=== PATIENT | male | born 1940 | race Caucasian/White ===

== ENCOUNTER → 2021-05-18 | Day surgery (SDC) | payer MEDICARE ==
[~2021-05-18] MED LIST: Albumin 25% 100 ML ONE; Sodium Bicarbonate 2.5 MEQ/5 ML VIAL ONE
[2021-05-18 13:38] VITALS: TEMP 98
== END ==
LOC: CSHULT 12:34
PROVIDERS: ATTEND Physician Assistant Medical
DX: R18.8 Other ascites (principal)
CPT/HCPCS: 49083; P9047

== ENCOUNTER 2021-06-01 12:42 | Day surgery (SDC) | payer MEDICARE ==
[2021-06-01] MEDS ORDERED: Lidocaine 1% PF 5 ML VIAL ONE (12:59)
[2021-06-01] MEDS ORDERED: Albumin 25% 100 ML ONE (12:59)
[2021-06-01] MEDS ORDERED: Sodium Bicarbonate 2.5 MEQ/5 ML VIAL ONE (13:00)
[2021-06-01 13:58] LABS: Anion Gap 12 mmol/L (10-20); BUN (Urea Nitrogen) 38 mg/dL (8.4-25.7); Calc. Creatinine Clearance 0 mL/min (70-130); Calcium 9.1 mg/dL (7.8-10.44); Carbon Dioxide 29 mmol/L (23-31); Chloride 101 mmol/L (98-107); Glucose 285 mg/dL (83-110); Magnesium 2.4 mg/dL (1.6-2.6); Potassium 4.5 mmol/L (3.5-5.1); Sodium 137 mmol/L (136-145)
[2021-06-01 14:45] VITALS: BMI 28.0
[2021-06-01 15:04] VITALS: BP 129/63; TEMP 98.2
[2021-06-01] MEDS ORDERED: FLU VACC QS2021-22(65YR UP)/PF 240 MCG/0.7 ML SYRINGE IM ONE (15:30)
== END 2021-06-01 14:25 | disposition home or self-care (01) ==
LOC: CSHULT 12:42
PROVIDERS: ATTEND Physician Assistant Medical
DX: R18.8 Other ascites (principal); K74.60 Unspecified cirrhosis of liver
CPT/HCPCS: 49083; 80048; 83735; 83880; P9047

== ENCOUNTER 2021-06-13 12:40 | Day surgery (SDC) | payer MEDICARE ==
[2021-06-13] MEDS ORDERED: Albumin 25% 100 ML ONE (13:06)
[2021-06-13] MEDS ORDERED: Lidocaine 1% PF 5 ML VIAL ONE (13:06)
[2021-06-13] MEDS ORDERED: Sodium Bicarbonate 2.5 MEQ/5 ML VIAL ONE (13:07)
== END 2021-06-13 14:18 | disposition home or self-care (01) ==
LOC: CSHULT 12:40
PROVIDERS: ATTEND Physician Assistant Medical
DX: R18.8 Other ascites (principal); K74.60 Unspecified cirrhosis of liver
CPT/HCPCS: 49083; P9047

== ENCOUNTER 2021-06-27 12:40 | Day surgery (SDC) | payer MEDICARE ==
[2021-06-27] MEDS ORDERED: Albumin 25% 100 ML ONE (13:01)
[2021-06-27] MEDS ORDERED: Lidocaine 1% PF 5 ML VIAL ONE (13:01)
[2021-06-27 13:46] VITALS: TEMP 97.8
[2021-06-27 14:37] LABS: #Basophils 0.1 10x3/uL (0.0-0.2); #Eosinphils 0.4 10x3/uL (0.0-0.5); #Monocytes 0.6 10x3/uL (0.0-1.1); %Basophils 1.1 % (0.0-2.0); %Eosinophils 6.3 % (0.0-6.0); %Lymphocytes 12.9 % (18.0-47.0); %Monocytes 10.4 % (0.0-10.0); Hemoglobin 9.2 g/dL (13.5-17.5); Mean Corpuscular HGB CONC 32.5 g/dL (32.0-36.0); Mean Corpuscular Hemoglobin 33.6 pg (27.0-33.0); Mean Corpuscular Volume 103.3 fl (81.2-95.1); Mean Platelet Volume 10.7 fl (7.4-10.4); Platelet Count 203 10x3/uL (150-450); RBC Distribution Width 13.7 % (11.5-14.5); Red Blood Cell (RBC) Count 2.74 10x6/uL (4.32-5.72); White Blood Cell (WBC) Count 5.6 10x3/uL (3.5-10.5)
[2021-06-27 14:47] LABS: INR-International Normal Ratio 1.2; PTT 26.7 sec (22.0-33.0); Prothrombin Time 12.9 sec (9.5-12.1)
[2021-06-27 15:05] VITALS: BP 117/58
== END 2021-06-27 14:46 | disposition home or self-care (01) ==
LOC: CSHULT 12:40
PROVIDERS: ATTEND Physician Assistant Medical
DX: R18.8 Other ascites (principal); K74.60 Unspecified cirrhosis of liver; N18.4 Chronic kidney disease, stage 4 (severe)
CPT/HCPCS: 49083; 85025; 85610; 85730; P9047

== ENCOUNTER 2021-07-11 12:09 | Day surgery (SDC) | payer MEDICARE ==
[2021-07-11] MEDS ORDERED: FLU VACC QS2021-22(65YR UP)/PF 240 MCG/0.7 ML SYRINGE IM ONE (13:15)
[2021-07-11 14:02] LABS: Hemoglobin 9.9 g/dL (13.5-17.5); MDiff Complete? YES; Mean Corpuscular HGB CONC 32.4 g/dL (32.0-36.0); Mean Corpuscular Hemoglobin 33.4 pg (27.0-33.0); Mean Corpuscular Volume 103.4 fl (81.2-95.1); Mean Platelet Volume 10.8 fl (7.4-10.4); Platelet Count 205 10x3/uL (150-450); RBC Distribution Width 13.9 % (11.5-14.5); Red Blood Cell (RBC) Count 2.96 10x6/uL (4.32-5.72); White Blood Cell (WBC) Count 3.9 10x3/uL (3.5-10.5)
[2021-07-11 14:10] LABS: INR-International Normal Ratio 1.2; Prothrombin Time 13.5 sec (9.5-12.1)
[2021-07-11] MEDS ORDERED: Lidocaine 1% PF 5 ML VIAL ONE (14:46)
[2021-07-11 14:49] LABS: Band 4 % (5-11); Eosinophils 3 % (0-10); Lymphocytes 15 % (21-51); Monocytes 10 % (0-10); Neutrophil 68 % (42-75); Platelet Morphology Comment Appears Adequate
[2021-07-11] MEDS ORDERED: Albumin 25% 100 ML ONE (15:11)
== END 2021-07-11 15:42 | disposition home or self-care (01) ==
LOC: CSHULT 12:09
PROVIDERS: ATTEND Physician Assistant Medical
DX: R18.8 Other ascites (principal); K74.60 Unspecified cirrhosis of liver; D64.9 Anemia, unspecified; N18.9 Chronic kidney disease, unspecified
CPT/HCPCS: 49083; 76705; 85025; 85610; P9047

== ENCOUNTER 2021-07-25 12:14 | Day surgery (SDC) | payer MEDICARE ==
[2021-07-25] MEDS ORDERED: Albumin 25% 100 ML ONE ×2 (12:55→14:08)
[2021-07-25] MEDS ORDERED: Lidocaine 1% PF 5 ML VIAL ONE ×2 (12:56→13:42)
[2021-07-25] MEDS ORDERED: Sodium Bicarb 50 MEQ/50 ML VIAL ONE (12:56)
[2021-07-25] MEDS ORDERED: Sodium Bicarbonate 2.5 MEQ/5 ML VIAL ONE (12:58)
[2021-07-25 14:20] VITALS: BP 126/63; TEMP 97.8
== END 2021-07-25 14:40 | disposition home or self-care (01) ==
LOC: CSHULT 12:14
PROVIDERS: ATTEND Physician Assistant Medical
DX: R18.8 Other ascites (principal); K74.60 Unspecified cirrhosis of liver
CPT/HCPCS: 49083; P9047

== ENCOUNTER 2021-08-08 12:01 | Day surgery (SDC) | payer MEDICARE ==
[2021-08-08] MEDS ORDERED: Sodium Bicarbonate 2.5 MEQ/5 ML VIAL ONE (13:00)
[2021-08-08] MEDS ORDERED: Lidocaine 1% PF 5 ML VIAL ONE (13:00)
[2021-08-08] MEDS ORDERED: Albumin 25% 100 ML ONE ×2 (13:00→13:09)
[2021-08-08 14:24] VITALS: BP 137/67; TEMP 97.8
[2021-08-08] MEDS ORDERED: FLU VACC QS2021-22(65YR UP)/PF 240 MCG/0.7 ML SYRINGE IM ONE (14:30)
[2021-08-08 14:58] LABS: #Basophils 0.1 10x3/uL (0.0-0.2); #Eosinphils 0.4 10x3/uL (0.0-0.5); #Monocytes 0.6 10x3/uL (0.0-1.1); #Neutrophils 3.7 10x3/uL (1.5-8.4); %Lymphocytes 17.8 % (18.0-47.0); %Monocytes 10.6 % (0.0-10.0); %Neutrophils 63.1 % (40.0-75.0); Hemoglobin 9.7 g/dL (13.5-17.5); Mean Corpuscular HGB CONC 31.9 g/dL (32.0-36.0); Mean Corpuscular Hemoglobin 32.3 pg (27.0-33.0); Mean Corpuscular Volume 101.3 fl (81.2-95.1); Platelet Count 201 10x3/uL (150-450); RBC Distribution Width 14.5 % (11.5-14.5); White Blood Cell (WBC) Count 5.8 10x3/uL (3.5-10.5)
[2021-08-08 15:07] LABS: INR-International Normal Ratio 1.1; Prothrombin Time 11.8 sec (9.5-12.1)
== END 2021-08-08 14:16 | disposition home or self-care (01) ==
LOC: CSHULT 12:01
PROVIDERS: ATTEND Physician Assistant Medical
DX: R18.8 Other ascites (principal); K74.60 Unspecified cirrhosis of liver; N18.9 Chronic kidney disease, unspecified; I50.9 Heart failure, unspecified; Z79.899 Other long term (current) drug therapy; Z79.82 Long term (current) use of aspirin; Z79.01 Long term (current) use of anticoagulants
CPT/HCPCS: 49083; 85025; 85610; P9047

== ENCOUNTER 2021-08-22 12:12 | Day surgery (SDC) | payer MEDICARE ==
[2021-08-22] MEDS ORDERED: Albumin 25% 100 ML ONE ×2 (12:49→13:11)
[2021-08-22] MEDS ORDERED: Lidocaine 1% PF 5 ML VIAL ONE (12:50)
[2021-08-22] MEDS ORDERED: Sodium Bicarbonate 2.5 MEQ/5 ML VIAL ONE (12:51)
[2021-08-22 13:01] VITALS: BP 106/68; TEMP 98.7
== END 2021-08-22 14:06 | disposition home or self-care (01) ==
LOC: CSHRAD 12:12
PROVIDERS: ATTEND Physician Assistant Medical
DX: R18.8 Other ascites (principal)
CPT/HCPCS: 49083; P9047

== ENCOUNTER 2021-09-05 12:16 | Day surgery (SDC) | payer MEDICARE ==
[2021-09-05] MEDS ORDERED: Albumin 25% 100 ML ONE ×2 (12:25→13:41)
[2021-09-05] MEDS ORDERED: Lidocaine 1% PF 5 ML VIAL ONE (12:26)
[2021-09-05] MEDS ORDERED: Sodium Bicarbonate 2.5 MEQ/5 ML VIAL ONE (12:26)
[2021-09-05 13:16] LABS: #Basophils 0.1 10x3/uL (0.0-0.2); #Eosinphils 0.4 10x3/uL (0.0-0.5); #Monocytes 0.6 10x3/uL (0.0-1.1); #Neutrophils 3.4 10x3/uL (1.5-8.4); %Basophils 1.3 % (0.0-2.0); %Eosinophils 7.9 % (0.0-6.0); %Lymphocytes 16.2 % (18.0-47.0); %Monocytes 10.9 % (0.0-10.0); %Neutrophils 63.5 % (40.0-75.0); Hemoglobin 9.6 g/dL (13.5-17.5); Mean Corpuscular Hemoglobin 32.5 pg (27.0-33.0); Mean Corpuscular Volume 101.7 fl (81.2-95.1); Mean Platelet Volume 10.5 fl (7.4-10.4); Platelet Count 236 10x3/uL (150-450); RBC Distribution Width 15.5 % (11.5-14.5); Red Blood Cell (RBC) Count 2.95 10x6/uL (4.32-5.72); White Blood Cell (WBC) Count 5.4 10x3/uL (3.5-10.5)
[2021-09-05 13:33] LABS: INR-International Normal Ratio 1.1; PTT 25.5 sec (22.0-33.0); Prothrombin Time 12.5 sec (9.5-12.1)
[2021-09-05 14:47] VITALS: BP 136/71; TEMP 98.7
== END 2021-09-05 14:30 | disposition home or self-care (01) ==
LOC: CSHULT 12:16
PROVIDERS: ATTEND Physician Assistant Medical
DX: R18.8 Other ascites (principal)
CPT/HCPCS: 49083; 85025; 85610; 85730; P9047

== ENCOUNTER → 2021-09-12 | Day surgery (SDC) | payer MEDICARE ==
[~2021-09-12] MED LIST changes: -Albumin 25% 100 ML ONE; +Albumin 25% 200 ML ONE; +FLU VACC QS2021-22(65YR UP)/PF 240 MCG/0.7 ML SYRINGE IM ONE; +Lidocaine 1% PF 5 ML VIAL ONE
[2021-09-12 13:16] VITALS: BP 115/53; TEMP 97.4
== END ==
LOC: CSHULT 09:59
PROVIDERS: ATTEND Physician Assistant Medical
DX: R18.8 Other ascites (principal); E11.9 Type 2 diabetes mellitus without complications; E78.00 Pure hypercholesterolemia, unspecified; Z79.899 Other long term (current) drug therapy; Z79.01 Long term (current) use of anticoagulants; Z95.0 Presence of cardiac pacemaker; I11.0 Hypertensive heart disease with heart failure; I50.9 Heart failure, unspecified; Z79.84 Long term (current) use of oral hypoglycemic drugs
CPT/HCPCS: 49083; P9047

== ENCOUNTER 2021-09-19 11:59 | Day surgery (SDC) | payer MEDICARE ==
[2021-09-19] MEDS ORDERED: Albumin 25% 200 ML ONE (12:25)
[2021-09-19] MEDS ORDERED: Sodium Bicarbonate 2.5 MEQ/5 ML VIAL ONE (12:26)
[2021-09-19 13:14] VITALS: BP 118/65; TEMP 97.8
[2021-09-19] MEDS ORDERED: FLU VACC QS2021-22(65YR UP)/PF 240 MCG/0.7 ML SYRINGE IM ONE (13:45)
== END 2021-09-19 13:29 | disposition home or self-care (01) ==
LOC: CSHULT 11:59
PROVIDERS: ATTEND Physician Assistant Medical
DX: R18.8 Other ascites (principal)
CPT/HCPCS: 49083; P9047

== ENCOUNTER 2021-11-14 12:19 | Day surgery (SDC) | payer MEDICARE ==
[2021-11-14] MEDS ORDERED: Albumin 25% 100 ML ONE ×2 (12:42→14:22)
[2021-11-14] MEDS ORDERED: Sodium Bicarbonate 2.5 MEQ/5 ML VIAL ONE (12:43)
[2021-11-14] MEDS ORDERED: Lidocaine 1% PF 5 ML VIAL ONE (12:43)
[2021-11-14 13:27] VITALS: TEMP 98
== END 2021-11-14 15:30 | disposition home or self-care (01) ==
LOC: CSHULT 12:19
PROVIDERS: ATTEND Physician Assistant Medical
DX: R18.8 Other ascites (principal); N18.9 Chronic kidney disease, unspecified; K74.60 Unspecified cirrhosis of liver
CPT/HCPCS: 49083; 76705; P9047

== ENCOUNTER 2021-11-21 12:08 | Day surgery (SDC) | payer MEDICARE ==
[2021-11-21] MEDS ORDERED: Albumin 25% 200 ML ONE (12:39)
[2021-11-21] MEDS ORDERED: Lidocaine 1% PF 5 ML VIAL ONE (12:39)
[2021-11-21] MEDS ORDERED: Sodium Bicarbonate 2.5 MEQ/5 ML VIAL ONE (12:40)
[2021-11-21 13:15] VITALS: BP 109/57
== END 2021-11-21 13:45 | disposition home or self-care (01) ==
LOC: CSHULT 12:08
PROVIDERS: ATTEND Physician Assistant Medical
DX: R18.8 Other ascites (principal)
CPT/HCPCS: 49083; P9047

== ENCOUNTER 2021-11-28 12:09 | Day surgery (SDC) | payer MEDICARE ==
[2021-11-28] MEDS ORDERED: Albumin 25% 200 ML ONE (12:38)
[2021-11-28] MEDS ORDERED: Sodium Bicarbonate 2.5 MEQ/5 ML VIAL ONE (12:38)
[2021-11-28] MEDS ORDERED: Lidocaine 1% PF 5 ML VIAL ONE (12:38)
[2021-11-28 13:48] LABS: Hemoglobin 8.3 g/dL (13.5-17.5); Mean Corpuscular HGB CONC 33.6 g/dL (32.0-36.0); Mean Corpuscular Hemoglobin 33.6 pg (27.0-33.0); Mean Platelet Volume 10.3 fl (7.4-10.4); Platelet Count 176 10x3/uL (150-450); RBC Distribution Width 14.9 % (11.5-14.5); Red Blood Cell (RBC) Count 2.47 10x6/uL (4.32-5.72); White Blood Cell (WBC) Count 6.5 10x3/uL (3.5-10.5)
[2021-11-28 14:04] LABS: ALT (SGPT) 37 U/L (8-55); AST (SGOT) 40 U/L (5-34); Albumin 3.7 g/dL (3.4-4.8); Alkaline Phosphatase 104 U/L (40-110); Anion Gap 15 mmol/L (10-20); BUN (Urea Nitrogen) 49 mg/dL (8.4-25.7); Bilirubin, Total 0.6 mg/dL (0.2-1.2); Calc. Creatinine Clearance 26 mL/min (70-130); Calcium 8.7 mg/dL (7.8-10.44); Carbon Dioxide 25 mmol/L (23-31); Chloride 100 mmol/L (98-107); Globulin 2.1 g/dL (2.4-3.5); Glucose 198 mg/dL (83-110); Potassium 4.3 mmol/L (3.5-5.1); Protein, Total 5.8 g/dL (5.8-8.1); Sodium 136 mmol/L (136-145)
[2021-11-28 15:34] LABS: Bilirubin Neg (Negative); Blood, Urine 25 (Negative); Clarity Clear (Clear); Glucose, Urine (Dipstick) >=1000 mg/dL (Negative); Ketone, Urine Negative (Negative); Leukocyte Negative (Negative); Nitrite Negative (Negative); Protein, Urine (Dipstick) 15 mg/dl (Neg-Trace); Specific Gravity, Urine 1.015 (1.002-1.036); Urobilinogen Normal mg/dL (Less than 2)
[2021-11-28 15:48] LABS: Creatinine, Urine 55.92 mg/dL (63-166)
[2021-11-28 15:50] LABS: Squamous Epithelial 0-3 HPF (0-3); WBC/HPF 0-3 HPF (0-3)
[2021-11-28 15:51] LABS: Bacteria/HPF None Seen HPF (None Seen)
== END 2021-11-28 13:40 | disposition home or self-care (01) ==
LOC: CSHULT 12:09
PROVIDERS: ATTEND Physician Assistant Medical
DX: R18.8 Other ascites (principal)
CPT/HCPCS: 49083; 80053; 81001; 82570; 84156; 85027; P9047

== ENCOUNTER → 2021-12-05 | Day surgery (SDC) | payer MEDICARE ==
[~2021-12-05] MED LIST changes: -FLU VACC QS2021-22(65YR UP)/PF 240 MCG/0.7 ML SYRINGE IM ONE
[2021-12-05 13:12] VITALS: TEMP 98
== END ==
LOC: CSHULT 12:13
PROVIDERS: ATTEND Physician Assistant Medical
DX: R18.8 Other ascites (principal)
CPT/HCPCS: 49083; P9047

== ENCOUNTER → 2021-12-12 | Day surgery (SDC) | payer MEDICARE ==
[2021-12-12 12:46] VITALS: BP 116/89; TEMP 96.4
[2021-12-12 13:00] LABS: Anion Gap 13 mmol/L (10-20); BUN (Urea Nitrogen) 37 mg/dL (8.4-25.7); Calc. Creatinine Clearance 0 mL/min (70-130); Calcium 8.7 mg/dL (7.8-10.44); Carbon Dioxide 23 mmol/L (23-31); Chloride 102 mmol/L (98-107); Glucose 189 mg/dL (83-110); Potassium 4.7 mmol/L (3.5-5.1); Sodium 133 mmol/L (136-145)
== END ==
LOC: CSHULT 12:17
PROVIDERS: ATTEND Physician Assistant Medical
DX: R18.8 Other ascites (principal); N18.9 Chronic kidney disease, unspecified; K74.60 Unspecified cirrhosis of liver; N17.9 Acute kidney failure, unspecified
CPT/HCPCS: 49083; 80048; P9047

== ENCOUNTER → 2021-12-19 | Day surgery (SDC) | payer MEDICARE | LOC: CSHULT 12:10 | PROVIDERS: ATTEND Internal Medicine Gastroenterology | DX: R18.8 Other ascites (principal) | CPT/HCPCS: 49083; P9047 ==

== ENCOUNTER 2021-12-26 12:09 | Day surgery (SDC) | payer MEDICARE ==
[2021-12-26] MEDS ORDERED: Albumin 25% 100 ML ONE ×2 (12:25→13:01)
[2021-12-26] MEDS ORDERED: Sodium Bicarbonate 2.5 MEQ/5 ML VIAL ONE (12:26)
[2021-12-26] MEDS ORDERED: Lidocaine 1% PF 5 ML VIAL ONE (12:26)
[2021-12-26 13:31] VITALS: BP 113/67; TEMP 97.7
== END 2021-12-26 14:00 | disposition home or self-care (01) ==
LOC: CSHULT 12:09
PROVIDERS: ATTEND Physician Assistant Medical
PROC: 0W9G3ZZ Drainage of Peritoneal Cavity, Percutaneous Approach (ICD-10-PCS; principal; 2021-12-26)
DX: R18.8 Other ascites (principal)
CPT/HCPCS: 49083; P9047

== ENCOUNTER 2022-01-02 12:04 | Day surgery (SDC) | payer MEDICARE ==
[2022-01-02] MEDS ORDERED: Lidocaine 1% PF 5 ML VIAL ONE (12:25)
[2022-01-02] MEDS ORDERED: Albumin 25% 200 ML ONE (12:25)
[2022-01-02] MEDS ORDERED: Sodium Bicarbonate 2.5 MEQ/5 ML VIAL ONE (12:26)
[2022-01-02 12:57] LABS: Hemoglobin 8.7 g/dL (13.5-17.5); Mean Corpuscular HGB CONC 32.5 g/dL (32.0-36.0); Mean Corpuscular Hemoglobin 33.2 pg (27.0-33.0); Mean Corpuscular Volume 102.3 fl (81.2-95.1); Platelet Count 225 10x3/uL (150-450); Red Blood Cell (RBC) Count 2.62 10x6/uL (4.32-5.72); White Blood Cell (WBC) Count 5.5 10x3/uL (3.5-10.5)
[2022-01-02 13:02] VITALS: BP 102/58; TEMP 98.1
[2022-01-02 13:04] LABS: INR-International Normal Ratio 1.1; Prothrombin Time 11.8 sec (9.5-12.1)
== END 2022-01-02 14:39 | disposition home or self-care (01) ==
LOC: CSHULT 12:04
PROVIDERS: ATTEND Physician Assistant Medical
PROC: 0W9G3ZZ Drainage of Peritoneal Cavity, Percutaneous Approach (ICD-10-PCS; principal; 2022-01-02)
DX: K74.60 Unspecified cirrhosis of liver (principal); R18.8 Other ascites; N18.9 Chronic kidney disease, unspecified
CPT/HCPCS: 49083; 85027; 85610; P9047

== ENCOUNTER 2022-01-09 13:05 | Day surgery (SDC) | payer MEDICARE ==
[2022-01-09] MEDS ORDERED: Albumin 25% 100 ML ONE ×2 (13:17→13:18)
[2022-01-09] MEDS ORDERED: Lidocaine 1% PF 5 ML VIAL ONE (13:18)
[2022-01-09] MEDS ORDERED: Sodium Bicarbonate 2.5 MEQ/5 ML VIAL ONE (13:18)
[2022-01-09 13:56] VITALS: BMI 28.0
[2022-01-09 13:58] VITALS: BP 121/69; TEMP 97.8
== END 2022-01-09 15:55 | disposition home or self-care (01) ==
LOC: CSHULT 13:05
PROVIDERS: ATTEND Physician Assistant Medical
PROC: 0W9G3ZZ Drainage of Peritoneal Cavity, Percutaneous Approach (ICD-10-PCS; principal; 2022-01-09)
DX: R18.8 Other ascites (principal)
CPT/HCPCS: 49083; P9047

== ENCOUNTER 2022-01-16 12:14 | Day surgery (SDC) | payer MEDICARE ==
[2022-01-16] MEDS ORDERED: Lidocaine 1% PF 5 ML VIAL ONE (12:44)
[2022-01-16] MEDS ORDERED: Albumin 25% 200 ML ONE (12:44)
[2022-01-16] MEDS ORDERED: Sodium Bicarbonate 2.5 MEQ/5 ML VIAL ONE (12:44)
[2022-01-16 13:03] VITALS: BP 124/68; TEMP 97.3
[2022-01-16 13:11] LABS: Hemoglobin 9.3 g/dL (13.5-17.5); Mean Corpuscular HGB CONC 32.9 g/dL (32.0-36.0); Mean Corpuscular Hemoglobin 33.6 pg (27.0-33.0); Mean Corpuscular Volume 102.2 fl (81.2-95.1); Mean Platelet Volume 10.4 fl (7.4-10.4); Platelet Count 229 10x3/uL (150-450); RBC Distribution Width 15.9 % (11.5-14.5); Red Blood Cell (RBC) Count 2.77 10x6/uL (4.32-5.72); White Blood Cell (WBC) Count 7.2 10x3/uL (3.5-10.5)
[2022-01-16 13:22] LABS: ALT (SGPT) 48 U/L (8-55); AST (SGOT) 44 U/L (5-34); Albumin 3.2 g/dL (3.4-4.8); Alkaline Phosphatase 131 U/L (40-110); Anion Gap 11 mmol/L (10-20); BUN (Urea Nitrogen) 39 mg/dL (8.4-25.7); Bilirubin, Total 0.7 mg/dL (0.2-1.2); Calc. Creatinine Clearance 27 mL/min (70-130); Calcium 8.8 mg/dL (7.8-10.44); Carbon Dioxide 24 mmol/L (23-31); Chloride 104 mmol/L (98-107); Estimated GFR 24; Globulin 2.5 g/dL (2.4-3.5); Glucose 239 mg/dL (83-110); Potassium 5.1 mmol/L (3.5-5.1); Protein, Total 5.7 g/dL (5.8-8.1); Sodium 134 mmol/L (136-145)
[2022-01-16 16:34] LABS: Hemoglobin A1c 9.2 % (4.0-6.0)
== END 2022-01-16 14:04 | disposition home or self-care (01) ==
LOC: CSHULT 12:14
PROVIDERS: ATTEND Physician Assistant Medical
PROC: 0W9G3ZZ Drainage of Peritoneal Cavity, Percutaneous Approach (ICD-10-PCS; principal; 2022-01-16)
DX: R18.8 Other ascites (principal); N17.9 Acute kidney failure, unspecified
CPT/HCPCS: 49083; 80053; 83036; 85027; P9047

== ENCOUNTER 2022-01-23 12:24 | Day surgery (SDC) | payer MEDICARE ==
[2022-01-23] MEDS ORDERED: Sodium Bicarbonate 2.5 MEQ/5 ML VIAL ONE (12:42)
[2022-01-23] MEDS ORDERED: Albumin 25% 200 ML ONE (12:42)
[2022-01-23] MEDS ORDERED: Lidocaine 1% PF 5 ML VIAL ONE (12:42)
[2022-01-23 13:12] VITALS: BP 122/57; TEMP 97.4
== END 2022-01-23 14:01 | disposition home or self-care (01) ==
LOC: CSHULT 12:24
PROVIDERS: ATTEND Physician Assistant Medical
PROC: 0W9G3ZZ Drainage of Peritoneal Cavity, Percutaneous Approach (ICD-10-PCS; principal; 2022-01-23)
DX: R18.8 Other ascites (principal)
CPT/HCPCS: 49083; P9047

== ENCOUNTER 2022-01-30 12:13 | Day surgery (SDC) | payer MEDICARE ==
[2022-01-30] MEDS ORDERED: Lidocaine 1% PF 5 ML VIAL ONE (12:30)
[2022-01-30] MEDS ORDERED: Albumin 25% 200 ML ONE (12:30)
[2022-01-30] MEDS ORDERED: Sodium Bicarbonate 2.5 MEQ/5 ML VIAL ONE (12:31)
[2022-01-30 12:47] VITALS: BP 128/59
[2022-01-30 12:53] VITALS: BMI 26.5
[2022-01-30 13:26] LABS: ALT (SGPT) 33 U/L (8-55); AST (SGOT) 39 U/L (5-34); Albumin 3.1 g/dL (3.4-4.8); Alkaline Phosphatase 120 U/L (40-110); Anion Gap 11 mmol/L (10-20); BUN (Urea Nitrogen) 37 mg/dL (8.4-25.7); Bilirubin, Total 0.6 mg/dL (0.2-1.2); Calc. Creatinine Clearance 30 mL/min (70-130); Calcium 8.5 mg/dL (7.8-10.44); Carbon Dioxide 25 mmol/L (23-31); Chloride 104 mmol/L (98-107); Estimated GFR 28; Globulin 2.3 g/dL (2.4-3.5); Glucose 358 mg/dL (83-110); Potassium 4.7 mmol/L (3.5-5.1); Protein, Total 5.4 g/dL (5.8-8.1); Sodium 135 mmol/L (136-145)
== END 2022-01-30 14:03 | disposition home or self-care (01) ==
LOC: CSHULT 12:13
PROVIDERS: ATTEND Physician Assistant Medical
PROC: 0W9G3ZZ Drainage of Peritoneal Cavity, Percutaneous Approach (ICD-10-PCS; principal; 2022-01-30)
PROC: BW40ZZZ Ultrasonography of Abdomen (ICD-10-PCS; 2022-01-30)
DX: R18.8 Other ascites (principal)
CPT/HCPCS: 49083; 80053; P9047

== ENCOUNTER → 2022-02-06 | Day surgery (SDC) | payer MEDICARE ==
[2022-02-06 13:03] VITALS: BP 97/58
[2022-02-06 14:31] LABS: Bilirubin Neg (Negative); Blood, Urine 10 (Negative); Clarity Clear (Clear); Glucose, Urine (Dipstick) >=1000 mg/dL (Negative); Ketone, Urine Negative (Negative); Leukocyte 25 (Negative); Nitrite Negative (Negative); Protein, Urine (Dipstick) 30 mg/dl (Neg-Trace); Specific Gravity, Urine 1.015 (1.002-1.036); Urobilinogen Normal mg/dL (Less than 2)
[2022-02-06 14:41] LABS: RBC/HPF 0-3 HPF (0-3); Squamous Epithelial 0-3 HPF (0-3); WBC/HPF 0-3 HPF (0-3)
[2022-02-06 14:42] LABS: Bacteria/HPF Rare-Few HPF (None Seen)
[2022-02-06 14:46] LABS: Creatinine, Urine 114.94 mg/dL (63-166); Microalbumin/Creat Ratio 95.7 mg/g (Less than 30)
== END ==
LOC: CSHULT 12:16
PROVIDERS: ATTEND Physician Assistant Medical
PROC: 0W9G3ZZ Drainage of Peritoneal Cavity, Percutaneous Approach (ICD-10-PCS; principal; 2022-02-06)
DX: R18.8 Other ascites (principal)
CPT/HCPCS: 49083; 81001; 82043; 82962; P9047; 36416

== ENCOUNTER 2022-02-13 12:34 | Day surgery (SDC) | payer MEDICARE ==
[2022-02-13] MEDS ORDERED: Albumin 25% 200 ML ONE (13:14)
[2022-02-13] MEDS ORDERED: Sodium Bicarbonate 2.5 MEQ/5 ML VIAL ONE (13:14)
[2022-02-13] MEDS ORDERED: Lidocaine 1% PF 5 ML VIAL ONE (13:14)
[2022-02-13 13:22] VITALS: BP 108/64; TEMP 97.2
[2022-02-13 14:51] LABS: ALT (SGPT) 48 U/L (8-55); AST (SGOT) 45 U/L (5-34); Albumin 3.3 g/dL (3.4-4.8); Alkaline Phosphatase 98 U/L (40-110); Anion Gap 12 mmol/L (10-20); BUN (Urea Nitrogen) 66 mg/dL (8.4-25.7); BUN/Creatinine Ratio 24.09; Bilirubin, Total 0.6 mg/dL (0.2-1.2); Calc. Creatinine Clearance 26 mL/min (70-130); Calcium 8.9 mg/dL (7.8-10.44); Carbon Dioxide 20 mmol/L (23-31); Chloride 107 mmol/L (98-107); Estimated GFR 23; Globulin 2.2 g/dL (2.4-3.5); Glucose 190 mg/dL (83-110); Phosphorus 4.7 mg/dL (2.3-4.7); Potassium 5.7 mmol/L (3.5-5.1); Protein, Total 5.5 g/dL (5.8-8.1); Sodium 133 mmol/L (136-145)
== END 2022-02-13 14:34 | disposition home or self-care (01) ==
LOC: CSHULT 12:34
PROVIDERS: ATTEND Physician Assistant Medical
PROC: 0W9G3ZZ Drainage of Peritoneal Cavity, Percutaneous Approach (ICD-10-PCS; principal; 2022-02-13)
DX: R18.8 Other ascites (principal); K74.60 Unspecified cirrhosis of liver
CPT/HCPCS: 49083; 80053; 80069; 82962; P9047; 36416

== ENCOUNTER 2022-02-20 12:17 | Day surgery (SDC) | payer MEDICARE ==
[2022-02-20] MEDS ORDERED: Sodium Bicarbonate 2.5 MEQ/5 ML VIAL ONE (12:39)
[2022-02-20] MEDS ORDERED: Albumin 25% 200 ML ONE (12:39)
[2022-02-20] MEDS ORDERED: Lidocaine 1% PF 5 ML VIAL ONE (12:39)
[2022-02-20 12:45] VITALS: BP 100/56
== END 2022-02-20 13:54 | disposition home or self-care (01) ==
LOC: CSHULT 12:17
PROVIDERS: ATTEND Physician Assistant Medical
PROC: 0W9G3ZZ Drainage of Peritoneal Cavity, Percutaneous Approach (ICD-10-PCS; principal; 2022-02-20)
DX: R18.8 Other ascites (principal)
CPT/HCPCS: 49083; 82962; P9047; 36416

== ENCOUNTER 2022-02-27 12:14 | Day surgery (SDC) | payer MEDICARE ==
[2022-02-27] MEDS ORDERED: Albumin 25% 100 ML ONE (12:35)
[2022-02-27] MEDS ORDERED: Lidocaine 1% PF 5 ML VIAL ONE (12:36)
[2022-02-27] MEDS ORDERED: Sodium Bicarbonate 2.5 MEQ/5 ML VIAL ONE (12:37)
[2022-02-27 14:16] LABS: Bilirubin Neg (Negative); Blood, Urine 25 (Negative); Glucose, Urine (Dipstick) >=1000 mg/dL (Negative); Ketone, Urine Negative (Negative); Leukocyte 100 (Negative); Nitrite Negative (Negative); Protein, Urine (Dipstick) 30 mg/dl (Neg-Trace)
[2022-02-27 14:19] LABS: INR-International Normal Ratio 1.1
[2022-02-27 14:20] LABS: Clarity Hazy (Clear)
[2022-02-27 14:23] LABS: Albumin 3.4 g/dL (3.4-4.8); Anion Gap 12 mmol/L (10-20); BUN (Urea Nitrogen) 56 mg/dL (8.4-25.7); BUN/Creatinine Ratio 20.14; Calc. Creatinine Clearance 0 mL/min (70-130); Calcium 8.8 mg/dL (7.8-10.44); Carbon Dioxide 19 mmol/L (23-31); Chloride 106 mmol/L (98-107); Estimated GFR 22; Glucose 148 mg/dL (83-110); Potassium 5.4 mmol/L (3.5-5.1); Sodium 132 mmol/L (136-145)
[2022-02-27 14:24] LABS: Hemoglobin 8.9 g/dL (13.5-17.5); Mean Corpuscular HGB CONC 33.1 g/dL (32.0-36.0); Mean Corpuscular Hemoglobin 33.7 pg (27.0-33.0); Mean Corpuscular Volume 101.9 fl (81.2-95.1); Mean Platelet Volume 10.9 fl (7.4-10.4); Platelet Count 149 10x3/uL (150-450); Red Blood Cell (RBC) Count 2.64 10x6/uL (4.32-5.72); White Blood Cell (WBC) Count 7.9 10x3/uL (3.5-10.5)
[2022-02-27 14:38] LABS: Creatinine, Urine 86.82 mg/dL (63-166); Microalbumin/Creat Ratio 172.8 mg/g (Less than 30); Squamous Epithelial 0-3 HPF (0-3)
[2022-02-27 14:39] LABS: Mucous/LPF 2+ LPF (<2+)
[2022-02-27 14:41] LABS: Bacteria/HPF 3+ HPF (None Seen)
== END 2022-02-27 13:45 | disposition home or self-care (01) ==
LOC: CSHULT 12:14
PROVIDERS: ATTEND Physician Assistant Medical
PROC: 0W9G3ZZ Drainage of Peritoneal Cavity, Percutaneous Approach (ICD-10-PCS; principal; 2022-02-27)
DX: R18.8 Other ascites (principal)
CPT/HCPCS: 49083; 80069; 81001; 82043; 82962; 85027; 85610; P9047; 36416

== ENCOUNTER 2022-03-06 12:24 | Day surgery (SDC) | payer MEDICARE ==
[2022-03-06] MEDS ORDERED: Sodium Bicarbonate 2.5 MEQ/5 ML VIAL ONE (12:51)
[2022-03-06] MEDS ORDERED: Albumin 25% 100 ML ONE (12:51)
[2022-03-06] MEDS ORDERED: Lidocaine 1% PF 5 ML VIAL ONE (12:51)
== END 2022-03-06 14:19 | disposition home or self-care (01) ==
LOC: CSHULT 12:24
PROVIDERS: ATTEND Physician Assistant Medical
PROC: 0W9G3ZZ Drainage of Peritoneal Cavity, Percutaneous Approach (ICD-10-PCS; principal; 2022-03-06)
DX: R18.8 Other ascites (principal)
CPT/HCPCS: 49083; 82962; P9047; 36416

== ENCOUNTER 2022-03-20 12:11 | Day surgery (SDC) | payer MEDICARE ==
[2022-03-15 07:20] VITALS: BMI 28.0
[2022-03-20] MEDS ORDERED: Albumin 25% 100 ML ONE (12:34)
[2022-03-20] MEDS ORDERED: Lidocaine 1% PF 5 ML VIAL ONE (12:34)
[2022-03-20] MEDS ORDERED: Sodium Bicarbonate 2.5 MEQ/5 ML VIAL ONE (12:34)
[2022-03-20 12:52] VITALS: BP 129/62; TEMP 97
== END 2022-03-20 14:03 | disposition home or self-care (01) ==
LOC: CSHULT 12:11
PROVIDERS: ATTEND Physician Assistant Medical
PROC: 0W9G30Z Drainage of Peritoneal Cavity with Drainage Device, Percutaneous Approach (ICD-10-PCS; principal; 2022-03-20)
DX: R18.8 Other ascites (principal)
CPT/HCPCS: 49083; 82962; P9047; 36416

== ENCOUNTER 2022-03-27 12:15 | Day surgery (SDC) | payer MEDICARE ==
[2022-03-27] MEDS ORDERED: Sodium Bicarbonate 2.5 MEQ/5 ML VIAL ONE (12:54)
[2022-03-27] MEDS ORDERED: Albumin 25% 100 ML ONE (12:54)
[2022-03-27] MEDS ORDERED: Lidocaine 1% PF 5 ML VIAL ONE (12:54)
[2022-03-27 13:16] LABS: ALT (SGPT) 53 U/L (8-55); AST (SGOT) 46 U/L (5-34); Albumin 3.1 g/dL (3.4-4.8); Alkaline Phosphatase 111 U/L (40-110); Anion Gap 12 mmol/L (10-20); BUN (Urea Nitrogen) 44 mg/dL (8.4-25.7); Bilirubin, Total 0.6 mg/dL (0.2-1.2); Calc. Creatinine Clearance 0 mL/min (70-130); Calcium 8.6 mg/dL (7.8-10.44); Carbon Dioxide 23 mmol/L (23-31); Chloride 104 mmol/L (98-107); Estimated GFR 26; Globulin 2.4 g/dL (2.4-3.5); Glucose 115 mg/dL (83-110); Potassium 5.2 mmol/L (3.5-5.1); Protein, Total 5.5 g/dL (5.8-8.1); Sodium 134 mmol/L (136-145)
[2022-03-27 13:49] VITALS: BP 107/57; TEMP 97
== END 2022-03-27 13:45 | disposition home or self-care (01) ==
LOC: CSHULT 12:15
PROVIDERS: ATTEND Physician Assistant Medical
PROC: 0W9G3ZZ Drainage of Peritoneal Cavity, Percutaneous Approach (ICD-10-PCS; principal; 2022-03-27)
DX: R18.8 Other ascites (principal)
CPT/HCPCS: 49083; 80053; 82962; P9047; 36416

== ENCOUNTER 2022-04-03 12:15 | Day surgery (SDC) | payer MEDICARE ==
[2022-04-02 10:42] VITALS: BMI 28.0
[2022-04-03] MEDS ORDERED: Lidocaine 1% PF 5 ML VIAL ONE (12:30)
[2022-04-03] MEDS ORDERED: Sodium Bicarbonate 2.5 MEQ/5 ML VIAL ONE (12:30)
[2022-04-03] MEDS ORDERED: Albumin 25% 100 ML ONE (12:30)
[2022-04-03 12:56] LABS: #Basophils 0.1 10x3/uL (0.0-0.2); #Eosinphils 0.2 10x3/uL (0.0-0.5); #Monocytes 0.6 10x3/uL (0.0-1.1); #Neutrophils 4.8 10x3/uL (1.5-8.4); %Basophils 0.9 % (0.0-2.0); %Eosinophils 2.3 % (0.0-6.0); %Lymphocytes 12.3 % (18.0-47.0); %Monocytes 9.3 % (0.0-10.0); %Neutrophils 74.9 % (40.0-75.0); Hemoglobin 9.1 g/dL (13.5-17.5); Mean Corpuscular Hemoglobin 33.8 pg (27.0-33.0); Mean Corpuscular Volume 102.6 fl (81.2-95.1); Mean Platelet Volume 10.5 fl (7.4-10.4); Platelet Count 193 10x3/uL (150-450); RBC Distribution Width 15.4 % (11.5-14.5); Red Blood Cell (RBC) Count 2.69 10x6/uL (4.32-5.72); White Blood Cell (WBC) Count 6.4 10x3/uL (3.5-10.5)
[2022-04-03 12:57] VITALS: BP 106/55; TEMP 97.3
[2022-04-03 13:02] LABS: INR-International Normal Ratio 1.1; Prothrombin Time 11.5 sec (9.5-12.1)
== END 2022-04-03 13:40 | disposition home or self-care (01) ==
LOC: CSHULT 12:15
PROVIDERS: ATTEND Physician Assistant Medical
PROC: 0W9G3ZZ Drainage of Peritoneal Cavity, Percutaneous Approach (ICD-10-PCS; principal; 2022-04-03)
DX: R18.8 Other ascites (principal)
CPT/HCPCS: 49083; 85025; 85610; P9047

== ENCOUNTER → 2022-04-10 | Day surgery (SDC) | payer MEDICARE ==
[~2022-04-10] MED LIST changes: +Albumin 25% 100 ML ONE; -Albumin 25% 200 ML ONE
[2022-04-10 13:49] LABS: ALT (SGPT) 47 U/L (8-55); AST (SGOT) 48 U/L (5-34); Albumin 3.3 g/dL (3.4-4.8); Alkaline Phosphatase 126 U/L (40-110); Anion Gap 15 mmol/L (10-20); BUN (Urea Nitrogen) 37 mg/dL (8.4-25.7); Bilirubin, Total 0.6 mg/dL (0.2-1.2); Calc. Creatinine Clearance 0 mL/min (70-130); Carbon Dioxide 26 mmol/L (23-31); Chloride 102 mmol/L (98-107); Estimated GFR 25; Globulin 2.8 g/dL (2.4-3.5); Glucose 241 mg/dL (83-110); Potassium 4.6 mmol/L (3.5-5.1); Protein, Total 6.1 g/dL (5.8-8.1); Sodium 138 mmol/L (136-145)
[2022-04-10 14:16] VITALS: BP 95/59; TEMP 98.4
== END ==
LOC: CSHULT 12:07
PROVIDERS: ATTEND Physician Assistant Medical
PROC: 0W9G3ZZ Drainage of Peritoneal Cavity, Percutaneous Approach (ICD-10-PCS; principal; 2022-04-10)
DX: R18.8 Other ascites (principal)
CPT/HCPCS: 49083; 76705; 80053; 82962; P9047; 36416

== ENCOUNTER 2022-04-17 11:55 | Day surgery (SDC) | payer MEDICARE ==
[2022-04-17] MEDS ORDERED: Albumin 25% 100 ML ONE (12:29)
[2022-04-17] MEDS ORDERED: Sodium Bicarbonate 2.5 MEQ/5 ML VIAL ONE (12:30)
[2022-04-17] MEDS ORDERED: Lidocaine 1% PF 5 ML VIAL ONE (12:30)
[2022-04-17 14:35] VITALS: BP 105/60
[2022-04-17] MEDS ORDERED: Albumin 25% 25 GM/100 ML BOT IVPB SCH (15:15)
== END 2022-04-17 14:10 | disposition home or self-care (01) ==
LOC: CSHULT 11:55
PROVIDERS: ATTEND Physician Assistant Medical
PROC: 0W9G3ZZ Drainage of Peritoneal Cavity, Percutaneous Approach (ICD-10-PCS; principal; 2022-04-17)
DX: R18.8 Other ascites (principal)
CPT/HCPCS: 49083; P9047

== ENCOUNTER → 2022-04-24 | Day surgery (SDC) | payer MEDICARE ==
[~2022-04-24] MED LIST changes: +FLU VACC QS2022-23(65YR UP)/PF 240 MCG/0.7 ML SYRINGE IM ONE; -Lidocaine 1% PF 5 ML VIAL ONE
[2022-04-24 16:32] VITALS: BP 145/67; TEMP 98.6
== END | disposition home or self-care (01) ==
LOC: CSHULT 12:27
PROVIDERS: ATTEND Physician Assistant Medical
PROC: 0W9G30Z Drainage of Peritoneal Cavity with Drainage Device, Percutaneous Approach (ICD-10-PCS; principal; 2022-04-24)
DX: R18.8 Other ascites (principal)
CPT/HCPCS: 49083; P9047

== ENCOUNTER 2022-05-01 12:25 | Day surgery (SDC) | payer MEDICARE ==
[2022-05-01] MEDS ORDERED: Sodium Bicarbonate 2.5 MEQ/5 ML VIAL ONE (13:07)
[2022-05-01] MEDS ORDERED: Albumin 25% 100 ML ONE (13:07)
[2022-05-01 13:51] VITALS: TEMP 98
== END 2022-05-01 14:05 | disposition home or self-care (01) ==
LOC: CSHULT 12:25
PROVIDERS: ATTEND Physician Assistant Medical
PROC: 0W9G30Z Drainage of Peritoneal Cavity with Drainage Device, Percutaneous Approach (ICD-10-PCS; principal; 2022-05-01)
DX: R18.8 Other ascites (principal)
CPT/HCPCS: 49083; P9047

== ENCOUNTER 2022-05-08 12:15 | Day surgery (SDC) | payer MEDICARE ==
[2022-05-08] MEDS ORDERED: Albumin 25% 100 ML ONE (12:47)
[2022-05-08] MEDS ORDERED: Sodium Bicarbonate 2.5 MEQ/5 ML VIAL ONE (12:47)
[2022-05-08 13:05] VITALS: BP 106/54; TEMP 97.2
[2022-05-08 13:12] LABS: Hemoglobin 8.1 g/dL (13.5-17.5); Mean Corpuscular HGB CONC 32.8 g/dL (32.0-36.0); Mean Corpuscular Hemoglobin 33.9 pg (27.0-33.0); Mean Corpuscular Volume 103.3 fl (81.2-95.1); Mean Platelet Volume 10.3 fl (7.4-10.4); Platelet Count 231 10x3/uL (150-450); RBC Distribution Width 15.1 % (11.5-14.5); Red Blood Cell (RBC) Count 2.39 10x6/uL (4.32-5.72); White Blood Cell (WBC) Count 6.2 10x3/uL (3.5-10.5)
[2022-05-08 13:31] LABS: Phosphorus 4.9 mg/dL (2.3-4.7)
[2022-05-08 13:33] LABS: ALT (SGPT) 56 U/L (8-55); AST (SGOT) 60 U/L (5-34); Albumin 3.2 g/dL (3.4-4.8); Alkaline Phosphatase 148 U/L (40-110); Anion Gap 11 mmol/L (10-20); BUN (Urea Nitrogen) 49 mg/dL (8.4-25.7); BUN/Creatinine Ratio 20.08; Bilirubin, Total 0.7 mg/dL (0.2-1.2); Calc. Creatinine Clearance 26 mL/min (70-130); Calcium 8.5 mg/dL (7.8-10.44); Carbon Dioxide 26 mmol/L (23-31); Chloride 100 mmol/L (98-107); Estimated GFR 26; Globulin 2.6 g/dL (2.4-3.5); Glucose 409 mg/dL (83-110); Potassium 4.4 mmol/L (3.5-5.1); Protein, Total 5.8 g/dL (5.8-8.1); Sodium 133 mmol/L (136-145)
[2022-05-09] MEDS ORDERED: FLU VACC QS2022-23(65YR UP)/PF 240 MCG/0.7 ML SYRINGE IM ONE (13:30)
== END 2022-05-08 13:58 | disposition home or self-care (01) ==
LOC: CSHULT 12:15
PROVIDERS: ATTEND Physician Assistant Medical
PROC: 0W9G3ZZ Drainage of Peritoneal Cavity, Percutaneous Approach (ICD-10-PCS; principal; 2022-05-08)
DX: R18.8 Other ascites (principal)
CPT/HCPCS: 49083; 80053; 80069; 84100; 85027; P9047

== ENCOUNTER 2022-05-15 12:14 | Day surgery (SDC) | payer MEDICARE ==
[2022-05-15] MEDS ORDERED: Sodium Bicarbonate 2.5 MEQ/5 ML VIAL ONE (12:51)
[2022-05-15] MEDS ORDERED: Albumin 25% 100 ML ONE (12:51)
[2022-05-15] MEDS ORDERED: Lidocaine 1% MPF 2 ML VIAL ONE (12:51)
[2022-05-15 13:20] VITALS: BP 117/58; TEMP 96.6
[2022-05-15] MEDS ORDERED: FLU VACC QS2022-23(65YR UP)/PF 240 MCG/0.7 ML SYRINGE IM ONE (13:30)
[2022-05-15 13:44] LABS: INR-International Normal Ratio 1.1; Prothrombin Time 11.5 sec (9.5-12.1)
[2022-05-15 14:42] LABS: Bilirubin Neg (Negative); Blood, Urine 25 (Negative); Clarity Clear (Clear); Glucose, Urine (Dipstick) >=1000 mg/dL (Negative); Ketone, Urine Negative (Negative); Leukocyte Negative (Negative); Nitrite Negative (Negative); Protein, Urine (Dipstick) 15 mg/dl (Neg-Trace); Specific Gravity, Urine 1.015 (1.005-1.030); Urobilinogen Normal mg/dL (Less than 2)
[2022-05-15 14:50] LABS: Bacteria/HPF None Seen HPF (None Seen); RBC/HPF 0-3 HPF (0-3); Squamous Epithelial 0-3 HPF (0-3); WBC/HPF 0-3 HPF (0-3)
[2022-05-15 14:59] LABS: Creatinine, Urine 48.52 mg/dL (63-166); Microalbumin/Creat Ratio 82.4 mg/g (Less than 30)
[2022-05-15 15:05] LABS: Body Fluid Source Ascites Body Fluid; Clarity Cloudy/Turbid (Clear); Tube # EDTA
[2022-05-15 15:06] LABS: BF Color Red
[2022-05-15 15:42] LABS: BF Segmented Neutrophils 11 %; Cell Count Non Hematic 70 %; Lymphocytes 19 %
== END 2022-05-15 14:40 | disposition home or self-care (01) ==
LOC: CSHULT 12:14
PROVIDERS: ATTEND Physician Assistant Medical
PROC: 0W9G3ZZ Drainage of Peritoneal Cavity, Percutaneous Approach (ICD-10-PCS; principal; 2022-05-15)
DX: R18.8 Other ascites (principal)
CPT/HCPCS: 49083; 81001; 82042; 82043; 84157; 85610; 87070; 87205; 89051; P9047

== ENCOUNTER → 2022-05-29 | Day surgery (SDC) | payer MEDICARE ==
[~2022-05-29] MED LIST changes: -FLU VACC QS2022-23(65YR UP)/PF 240 MCG/0.7 ML SYRINGE IM ONE; +Lidocaine 1% MPF 2 ML VIAL ONE
[2022-05-29 13:34] VITALS: BP 135/65
== END ==
LOC: CSHULT 12:24
PROVIDERS: ATTEND Physician Assistant Medical
DX: R18.8 Other ascites (principal)
CPT/HCPCS: 49083; P9047

== ENCOUNTER → 2022-06-05 | Day surgery (SDC) | payer MEDICARE ==
[~2022-06-05] MED LIST changes: -Lidocaine 1% MPF 2 ML VIAL ONE; +Lidocaine 1% PF 5 ML VIAL ONE
[2022-06-05 13:16] VITALS: BP 102/59; TEMP 97.2
[2022-06-05 14:15] LABS: ALT (SGPT) 32 U/L (8-55); AST (SGOT) 32 U/L (5-34); Albumin 3.3 g/dL (3.4-4.8); Alkaline Phosphatase 114 U/L (40-110); Anion Gap 13 mmol/L (10-20); BUN (Urea Nitrogen) 48 mg/dL (8.4-25.7); Bilirubin, Total 0.7 mg/dL (0.2-1.2); Calc. Creatinine Clearance 31 mL/min (70-130); Calcium 8.7 mg/dL (7.8-10.44); Carbon Dioxide 24 mmol/L (23-31); Chloride 103 mmol/L (98-107); Estimated GFR 32; Globulin 2.2 g/dL (2.4-3.5); Glucose 196 mg/dL (83-110); Potassium 4.9 mmol/L (3.5-5.1); Protein, Total 5.5 g/dL (5.8-8.1); Sodium 135 mmol/L (136-145)
== END ==
LOC: CSHULT 12:10
PROVIDERS: ATTEND Physician Assistant Medical
DX: R18.8 Other ascites (principal)
CPT/HCPCS: 49083; 80053; P9047

== ENCOUNTER 2022-06-12 12:04 | Day surgery (SDC) | payer MEDICARE ==
[2022-06-12] MEDS ORDERED: Sodium Bicarbonate 2.5 MEQ/5 ML VIAL ONE (12:27)
[2022-06-12] MEDS ORDERED: Lidocaine 1% PF 5 ML VIAL ONE (12:27)
[2022-06-12] MEDS ORDERED: Albumin 25% 100 ML ONE (12:27)
[2022-06-12 12:36] VITALS: BP 125/67; TEMP 97.4
[2022-06-12 12:49] LABS: Hemoglobin 8.9 g/dL (13.5-17.5); Mean Corpuscular HGB CONC 33.5 g/dL (32.0-36.0); Mean Corpuscular Hemoglobin 34.4 pg (27.0-33.0); Mean Corpuscular Volume 102.7 fl (81.2-95.1); Mean Platelet Volume 10.5 fl (7.4-10.4); Platelet Count 243 10x3/uL (150-450); RBC Distribution Width 14.3 % (11.5-14.5); Red Blood Cell (RBC) Count 2.59 10x6/uL (4.32-5.72); White Blood Cell (WBC) Count 7.2 10x3/uL (3.5-10.5)
[2022-06-12 13:00] LABS: ALT (SGPT) 39 U/L (8-55); AST (SGOT) 40 U/L (5-34); Albumin 3.1 g/dL (3.4-4.8); Alkaline Phosphatase 124 U/L (40-110); Anion Gap 13 mmol/L (10-20); BUN (Urea Nitrogen) 48 mg/dL (8.4-25.7); Bilirubin, Total 0.6 mg/dL (0.2-1.2); Calc. Creatinine Clearance 27 mL/min (70-130); Calcium 8.7 mg/dL (7.8-10.44); Carbon Dioxide 25 mmol/L (23-31); Chloride 107 mmol/L (98-107); Estimated GFR 27; Globulin 2.6 g/dL (2.4-3.5); Glucose 182 mg/dL (83-110); Potassium 5.3 mmol/L (3.5-5.1); Protein, Total 5.7 g/dL (5.8-8.1); Sodium 140 mmol/L (136-145)
== END 2022-06-12 13:54 | disposition home or self-care (01) ==
LOC: CSHULT 12:04
PROVIDERS: ATTEND Physician Assistant Medical
DX: R18.8 Other ascites (principal)
CPT/HCPCS: 49083; 80053; 85027; P9047

== ENCOUNTER 2022-06-19 12:05 | Day surgery (SDC) | payer MEDICARE ==
[2022-06-19] MEDS ORDERED: Albumin 25% 100 ML ONE ×2 (12:51→12:56)
[2022-06-19] MEDS ORDERED: Sodium Bicarbonate 2.5 MEQ/5 ML VIAL ONE (13:03)
[2022-06-19] MEDS ORDERED: Lidocaine 1% PF 5 ML VIAL ONE (13:03)
[2022-06-19 13:41] LABS: Prothrombin Time 11.2 sec (9.5-12.1)
== END 2022-06-19 14:02 | disposition home or self-care (01) ==
LOC: CSHULT 12:05
PROVIDERS: ATTEND Physician Assistant Medical
DX: R18.8 Other ascites (principal)
CPT/HCPCS: 49083; 85610; P9047

== ENCOUNTER 2022-06-25 14:49 | Emergency (ER) | payer MEDICARE | END 2022-06-25 16:39 | disposition home or self-care (01) | LOC: CSHERS 14:49 | DX: S50.812A Abrasion of left forearm, initial encounter (principal); E11.9 Type 2 diabetes mellitus without complications; E78.00 Pure hypercholesterolemia, unspecified; I50.9 Heart failure, unspecified; W18.40XA Slipping, tripping and stumbling without falling, unspecified, initial encounter | CPT/HCPCS: 99283 ==

== ENCOUNTER → 2022-06-26 | Day surgery (SDC) | payer MEDICARE ==
[2022-06-26 12:51] LABS: Bilirubin Neg (Negative); Blood, Urine 25 (Negative); Clarity Clear (Clear); Glucose, Urine (Dipstick) >=1000 mg/dL (Negative); Ketone, Urine Negative (Negative); Leukocyte 100 (Negative); Nitrite Negative (Negative); Protein, Urine (Dipstick) 15 mg/dl (Neg-Trace); Specific Gravity, Urine 1.015 (1.005-1.030); Urobilinogen Normal mg/dL (Less than 2)
[2022-06-26 13:10] LABS: Creatinine, Urine 49.54 mg/dL (63-166); Microalbumin/Creat Ratio 60.6 mg/g (Less than 30)
[2022-06-26 13:11] LABS: Bacteria/HPF None Seen HPF (None Seen); Squamous Epithelial 0-3 HPF (0-3)
[2022-06-26 13:18] LABS: Hemoglobin 9.1 g/dL (13.5-17.5); Mean Corpuscular HGB CONC 33.3 g/dL (32.0-36.0); Mean Corpuscular Hemoglobin 33.7 pg (27.0-33.0); Mean Corpuscular Volume 101.1 fl (81.2-95.1); Mean Platelet Volume 10.6 fl (7.4-10.4); Platelet Count 260 10x3/uL (150-450); RBC Distribution Width 13.9 % (11.5-14.5); White Blood Cell (WBC) Count 6.9 10x3/uL (3.5-10.5)
[2022-06-26 13:39] LABS: ALT (SGPT) 34 U/L (8-55); AST (SGOT) 38 U/L (5-34); Albumin 3.2 g/dL (3.4-4.8); Alkaline Phosphatase 117 U/L (40-110); Anion Gap 12 mmol/L (10-20); BUN (Urea Nitrogen) 62 mg/dL (8.4-25.7); Bilirubin, Total 0.6 mg/dL (0.2-1.2); Calc. Creatinine Clearance 0 mL/min (70-130); Calcium 8.8 mg/dL (7.8-10.44); Carbon Dioxide 25 mmol/L (23-31); Chloride 104 mmol/L (98-107); Estimated GFR 23; Globulin 2.6 g/dL (2.4-3.5); Glucose 218 mg/dL (83-110); Potassium 5.8 mmol/L (3.5-5.1); Protein, Total 5.8 g/dL (5.8-8.1); Sodium 135 mmol/L (136-145)
[2022-06-26 14:10] VITALS: BP 122/72; TEMP 98.7
== END ==
LOC: CSHULT 12:12
PROVIDERS: ATTEND Physician Assistant Medical
DX: R18.8 Other ascites (principal)
CPT/HCPCS: 49083; 80053; 81001; 82043; 85027

== ENCOUNTER 2022-07-03 12:13 | Day surgery (SDC) | payer MEDICARE | END 2022-07-03 12:35 | disposition home or self-care (01) | LOC: CSHULT 12:13 | PROVIDERS: ATTEND Physician Assistant Medical | DX: R18.8 Other ascites (principal) | CPT/HCPCS: 49083; P9047 ==

== ENCOUNTER 2022-07-10 12:14 | Day surgery (SDC) | payer MEDICARE ==
[2022-07-10] MEDS ORDERED: Albumin 25% 100 ML ONE (12:53)
[2022-07-10] MEDS ORDERED: Lidocaine 1% PF 5 ML VIAL ONE (12:53)
[2022-07-10] MEDS ORDERED: Sodium Bicarbonate 2.5 MEQ/5 ML VIAL ONE (12:54)
[2022-07-10 13:31] VITALS: BP 111/62; TEMP 97.6
[2022-07-10 14:48] LABS: ALT (SGPT) 53 U/L (8-55); AST (SGOT) 66 U/L (5-34); Albumin 3.1 g/dL (3.4-4.8); Alkaline Phosphatase 120 U/L (40-110); Anion Gap 11 mmol/L (10-20); BUN (Urea Nitrogen) 37 mg/dL (8.4-25.7); Bilirubin, Total 0.5 mg/dL (0.2-1.2); Calc. Creatinine Clearance 34 mL/min (70-130); Calcium 8.8 mg/dL (7.8-10.44); Carbon Dioxide 25 mmol/L (23-31); Chloride 107 mmol/L (98-107); Estimated GFR 36; Globulin 2.6 g/dL (2.4-3.5); Glucose 217 mg/dL (83-110); Potassium 4.8 mmol/L (3.5-5.1); Protein, Total 5.7 g/dL (5.8-8.1); Sodium 138 mmol/L (136-145)
== END 2022-07-10 14:30 | disposition home or self-care (01) ==
LOC: CSHULT 12:14
PROVIDERS: ATTEND Physician Assistant Medical
DX: R18.8 Other ascites (principal)
CPT/HCPCS: 49083; 80053; P9047

== ENCOUNTER → 2022-07-17 | Day surgery (SDC) | payer MEDICARE | LOC: CSHULT 12:09 | PROVIDERS: ATTEND Physician Assistant Medical | PROC: 0W9G3ZZ Drainage of Peritoneal Cavity, Percutaneous Approach (ICD-10-PCS; principal; 2022-07-17) | DX: R18.8 Other ascites (principal) | CPT/HCPCS: 49083; P9047 ==

== ENCOUNTER → 2022-07-24 | Day surgery (SDC) | payer MEDICARE ==
[2022-07-24 12:55] LABS: Hemoglobin 9.8 g/dL (13.5-17.5); Mean Corpuscular HGB CONC 32.8 g/dL (32.0-36.0); Mean Corpuscular Volume 100.7 fl (81.2-95.1); Mean Platelet Volume 10.7 fl (7.4-10.4); Platelet Count 249 10x3/uL (150-450); RBC Distribution Width 13.8 % (11.5-14.5); Red Blood Cell (RBC) Count 2.97 10x6/uL (4.32-5.72); White Blood Cell (WBC) Count 7.1 10x3/uL (3.5-10.5)
[2022-07-24 13:01] LABS: INR-International Normal Ratio 1.1; Prothrombin Time 11.6 sec (9.5-12.1)
[2022-07-24 13:04] LABS: Anion Gap 11 mmol/L (10-20); BUN (Urea Nitrogen) 43 mg/dL (8.4-25.7); Calc. Creatinine Clearance 0 mL/min (70-130); Calcium 8.6 mg/dL (7.8-10.44); Carbon Dioxide 23 mmol/L (23-31); Chloride 107 mmol/L (98-107); Estimated GFR 33; Glucose 231 mg/dL (83-110); Potassium 4.9 mmol/L (3.5-5.1); Sodium 136 mmol/L (136-145)
== END ==
LOC: CSHULT 12:13
PROVIDERS: ATTEND Physician Assistant Medical
PROC: 0W9G3ZZ Drainage of Peritoneal Cavity, Percutaneous Approach (ICD-10-PCS; principal; 2022-07-24)
DX: R18.8 Other ascites (principal)
CPT/HCPCS: 49083; 80048; 85027; 85610; P9047

== ENCOUNTER → 2022-07-31 | Day surgery (SDC) | payer MEDICARE | LOC: CSHULT 12:30 | PROVIDERS: ATTEND Physician Assistant Medical | PROC: 0W9G3ZZ Drainage of Peritoneal Cavity, Percutaneous Approach (ICD-10-PCS; principal; 2022-07-31) | DX: R18.8 Other ascites (principal) | CPT/HCPCS: 49083; P9047 ==

== ENCOUNTER → 2022-08-07 | Day surgery (SDC) | payer MEDICARE ==
[2022-08-07 13:05] LABS: ALT (SGPT) 33 U/L (8-55); AST (SGOT) 37 U/L (5-34); Alkaline Phosphatase 114 U/L (40-110); Anion Gap 12 mmol/L (10-20); BUN (Urea Nitrogen) 39 mg/dL (8.4-25.7); Bilirubin, Total 0.6 mg/dL (0.2-1.2); Calc. Creatinine Clearance 0 mL/min (70-130); Calcium 8.7 mg/dL (7.8-10.44); Carbon Dioxide 23 mmol/L (23-31); Chloride 108 mmol/L (98-107); Estimated GFR 34; Globulin 2.7 g/dL (2.4-3.5); Glucose 211 mg/dL (83-110); Protein, Total 5.7 g/dL (5.8-8.1); Sodium 138 mmol/L (136-145)
[2022-08-07 13:14] VITALS: BP 110/65
[2022-08-07 14:32] LABS: Bilirubin Neg (Negative); Blood, Urine 10 (Negative); Clarity Clear (Clear); Glucose, Urine (Dipstick) >=1000 mg/dL (Negative); Ketone, Urine Negative (Negative); Leukocyte 25 (Negative); Nitrite Negative (Negative); Protein, Urine (Dipstick) 30 mg/dl (Neg-Trace); Specific Gravity, Urine 1.015 (1.005-1.030); Urobilinogen Normal mg/dL (Less than 2)
[2022-08-07 14:42] LABS: RBC/HPF 0-3 HPF (0-3)
[2022-08-07 14:43] LABS: Bacteria/HPF 1+ HPF (None Seen); Renal Epithelial 0-3 HPF (None Seen); Transitional Epithelial 0-3 HPF (None Seen)
[2022-08-07 14:46] LABS: Creatinine, Urine 66.25 mg/dL (63-166); Microalbumin/Creat Ratio 90.6 mg/g (Less than 30)
== END ==
LOC: CSHULT 12:11
PROVIDERS: ATTEND Physician Assistant Medical
PROC: 0W9G3ZZ Drainage of Peritoneal Cavity, Percutaneous Approach (ICD-10-PCS; principal; 2022-08-07)
DX: R18.8 Other ascites (principal)
CPT/HCPCS: 49083; 80053; 81001; 82043; P9047

== ENCOUNTER 2022-08-14 12:21 | Day surgery (SDC) | payer MEDICARE ==
[2022-08-14] MEDS ORDERED: Albumin 25% 100 ML ONE (12:59)
[2022-08-14] MEDS ORDERED: Sodium Bicarbonate 2.5 MEQ/5 ML VIAL ONE (13:00)
[2022-08-14] MEDS ORDERED: Lidocaine 1% PF 5 ML VIAL ONE (13:00)
[2022-08-14 14:37] VITALS: BP 119/61; TEMP 99
== END 2022-08-14 14:00 | disposition home or self-care (01) ==
LOC: CSHULT 12:21
PROVIDERS: ATTEND Physician Assistant Medical
PROC: 0W9G3ZZ Drainage of Peritoneal Cavity, Percutaneous Approach (ICD-10-PCS; principal; 2022-08-14)
DX: R18.8 Other ascites (principal)
CPT/HCPCS: 49083; P9047

== ENCOUNTER → 2022-08-21 | Day surgery (SDC) | payer MEDICARE ==
[2022-08-19 10:10] VITALS: BMI 25.1
[2022-08-21 12:53] LABS: ALT (SGPT) 44 U/L (8-55); AST (SGOT) 44 U/L (5-34); Albumin 3.2 g/dL (3.4-4.8); Alkaline Phosphatase 124 U/L (40-110); Anion Gap 12 mmol/L (10-20); BUN (Urea Nitrogen) 40 mg/dL (8.4-25.7); Bilirubin, Total 0.6 mg/dL (0.2-1.2); Calc. Creatinine Clearance 34 mL/min (70-130); Calcium 8.8 mg/dL (7.8-10.44); Carbon Dioxide 25 mmol/L (23-31); Chloride 104 mmol/L (98-107); Estimated GFR 35; Globulin 2.6 g/dL (2.4-3.5); Glucose 243 mg/dL (83-110); Protein, Total 5.8 g/dL (5.8-8.1); Sodium 136 mmol/L (136-145)
== END ==
LOC: CSHULT 11:57
PROVIDERS: ATTEND Physician Assistant Medical
PROC: 0W9G3ZZ Drainage of Peritoneal Cavity, Percutaneous Approach (ICD-10-PCS; principal; 2022-08-21)
DX: R18.8 Other ascites (principal); K80.20 Calculus of gallbladder without cholecystitis without obstruction; K74.60 Unspecified cirrhosis of liver
CPT/HCPCS: 49083; 76705; 80053; P9047

== ENCOUNTER → 2022-08-28 | Day surgery (SDC) | payer MEDICARE ==
[2022-08-28 13:27] LABS: INR-International Normal Ratio 1.1; Prothrombin Time 11.6 sec (9.5-12.1)
[2022-08-28 13:37] LABS: #Basophils 0.1 10x3/uL (0.0-0.2); #Eosinphils 0.4 10x3/uL (0.0-0.5); #Monocytes 0.6 10x3/uL (0.0-1.1); #Neutrophils 4.2 10x3/uL (1.5-8.4); %Basophils 1.2 % (0.0-2.0); %Eosinophils 6.7 % (0.0-6.0); %Lymphocytes 12.1 % (18.0-47.0); %Monocytes 9.5 % (0.0-10.0); %Neutrophils 70.3 % (40.0-75.0); Hemoglobin 10.1 g/dL (13.5-17.5); Mean Corpuscular HGB CONC 33.4 g/dL (32.0-36.0); Mean Corpuscular Hemoglobin 32.6 pg (27.0-33.0); Mean Corpuscular Volume 97.4 fl (81.2-95.1); Mean Platelet Volume 10.6 fl (7.4-10.4); Platelet Count 245 10x3/uL (150-450); RBC Distribution Width 14.7 % (11.5-14.5)
== END ==
LOC: CSHULT 12:16
PROVIDERS: ATTEND Physician Assistant Medical
PROC: 0W9G3ZZ Drainage of Peritoneal Cavity, Percutaneous Approach (ICD-10-PCS; principal; 2022-08-28)
DX: R18.8 Other ascites (principal)
CPT/HCPCS: 49083; 85025; 85610; 85730; P9047

== ENCOUNTER 2022-09-04 12:10 | Day surgery (SDC) | payer MEDICARE ==
[2022-09-04] MEDS ORDERED: Albumin 25% 100 ML ONE ×2 (12:54→13:14)
[2022-09-04] MEDS ORDERED: Sodium Bicarbonate 2.5 MEQ/5 ML VIAL ONE (12:54)
[2022-09-04] MEDS ORDERED: Lidocaine 1% PF 5 ML VIAL ONE (12:54)
[2022-09-04 14:22] VITALS: BP 113/55; TEMP 98.8
== END 2022-09-04 14:04 | disposition home or self-care (01) ==
LOC: CSHULT 12:10
PROVIDERS: ATTEND Physician Assistant Medical
PROC: 0W9G3ZZ Drainage of Peritoneal Cavity, Percutaneous Approach (ICD-10-PCS; principal; 2022-09-04)
DX: R18.8 Other ascites (principal)
CPT/HCPCS: 49083; P9047

== ENCOUNTER 2022-09-11 12:14 | Day surgery (SDC) | payer MEDICARE ==
[2022-09-10 07:59] VITALS: BMI 25.1
[2022-09-11] MEDS ORDERED: Albumin 25% 100 ML ONE ×3 (12:51→12:52)
[2022-09-11] MEDS ORDERED: Lidocaine 1% PF 5 ML VIAL ONE (12:52)
[2022-09-11] MEDS ORDERED: Sodium Bicarbonate 2.5 MEQ/5 ML VIAL ONE (12:52)
== END 2022-09-11 14:00 | disposition home or self-care (01) ==
LOC: CSHULT 12:14
PROVIDERS: ATTEND Physician Assistant Medical
DX: R18.8 Other ascites (principal)
CPT/HCPCS: 49083; P9047

== ENCOUNTER 2022-09-18 12:17 | Day surgery (SDC) | payer MEDICARE ==
[2022-09-12 12:29] VITALS: BMI 25.1
[2022-09-18] MEDS ORDERED: Lidocaine 1% PF 5 ML VIAL ONE (12:41)
[2022-09-18] MEDS ORDERED: Albumin 25% 200 ML ONE (12:41)
[2022-09-18] MEDS ORDERED: Sodium Bicarbonate 2.5 MEQ/5 ML VIAL ONE (12:42)
[2022-09-18 14:10] LABS: ALT (SGPT) 34 U/L (8-55); AST (SGOT) 41 U/L (5-34); Albumin 3.2 g/dL (3.4-4.8); Alkaline Phosphatase 103 U/L (40-110); Anion Gap 13 mmol/L (10-20); BUN (Urea Nitrogen) 49 mg/dL (8.4-25.7); Bilirubin, Total 0.5 mg/dL (0.2-1.2); Calc. Creatinine Clearance 28 mL/min (70-130); Calcium 8.6 mg/dL (7.8-10.44); Carbon Dioxide 24 mmol/L (23-31); Chloride 105 mmol/L (98-107); Estimated GFR 28; Globulin 2.4 g/dL (2.4-3.5); Glucose 201 mg/dL (83-110); Potassium 4.7 mmol/L (3.5-5.1); Protein, Total 5.6 g/dL (5.8-8.1); Sodium 137 mmol/L (136-145)
[2022-09-18 14:44] LABS: Bilirubin Neg (Negative); Blood, Urine 10 (Negative); Clarity Slightly Cloudy (Clear); Glucose, Urine (Dipstick) >=1000 mg/dL (Negative); Ketone, Urine Negative (Negative); Leukocyte 25 (Negative); Nitrite Negative (Negative); Protein, Urine (Dipstick) 30 mg/dl (Neg-Trace); Urobilinogen Normal mg/dL (Less than 2)
[2022-09-18 14:52] LABS: Bacteria/HPF 1+ HPF (None Seen); RBC/HPF 0-3 HPF (0-3); Squamous Epithelial 0-3 HPF (0-3); WBC/HPF 0-3 HPF (0-3)
[2022-09-18 15:05] LABS: Creatinine, Urine 54.98 mg/dL (63-166); Microalbumin/Creat Ratio 127.3 mg/g (Less than 30)
== END 2022-09-18 14:13 | disposition home or self-care (01) ==
LOC: CSHULT 12:17
PROVIDERS: ATTEND Physician Assistant Medical
PROC: 0W9G3ZZ Drainage of Peritoneal Cavity, Percutaneous Approach (ICD-10-PCS; principal; 2022-09-18)
DX: R18.8 Other ascites (principal)
CPT/HCPCS: 49083; 80053; 82043; P9047; 81003; 81015

== ENCOUNTER 2022-09-25 12:11 | Day surgery (SDC) | payer MEDICARE ==
[2022-09-25] MEDS ORDERED: Lidocaine 1% PF 5 ML VIAL ONE (12:59)
[2022-09-25] MEDS ORDERED: Albumin 25% 100 ML ONE ×2 (12:59→13:00)
[2022-09-25] MEDS ORDERED: Sodium Bicarbonate 2.5 MEQ/5 ML VIAL ONE (12:59)
[2022-09-25 13:05] LABS: #Basophils 0.1 10x3/uL (0.0-0.2); #Eosinphils 0.6 10x3/uL (0.0-0.5); #Monocytes 0.7 10x3/uL (0.0-1.1); #Neutrophils 4.5 10x3/uL (1.5-8.4); %Basophils 1.2 % (0.0-2.0); %Eosinophils 8.8 % (0.0-6.0); %Lymphocytes 12.5 % (18.0-47.0); %Neutrophils 66.1 % (40.0-75.0); Hemoglobin 8.8 g/dL (13.5-17.5); Mean Corpuscular HGB CONC 31.9 g/dL (32.0-36.0); Mean Corpuscular Hemoglobin 31.1 pg (27.0-33.0); Mean Corpuscular Volume 97.5 fl (81.2-95.1); Mean Platelet Volume 10.5 fl (7.4-10.4); Platelet Count 243 10x3/uL (150-450); RBC Distribution Width 15.6 % (11.5-14.5); Red Blood Cell (RBC) Count 2.83 10x6/uL (4.32-5.72); White Blood Cell (WBC) Count 6.7 10x3/uL (3.5-10.5)
[2022-09-25 13:15] LABS: Anion Gap 12 mmol/L (10-20); BUN (Urea Nitrogen) 47 mg/dL (8.4-25.7); Calc. Creatinine Clearance 0 mL/min (70-130); Calcium 8.8 mg/dL (7.8-10.44); Carbon Dioxide 24 mmol/L (23-31); Chloride 105 mmol/L (98-107); Estimated GFR 37; Glucose 182 mg/dL (83-110); Sodium 136 mmol/L (136-145)
[2022-09-25 13:16] LABS: Prothrombin Time 11.1 sec (9.5-12.1)
[2022-09-25 13:45] VITALS: BP 116/60; TEMP 98.7
== END 2022-09-25 14:20 | disposition home or self-care (01) ==
LOC: CSHULT 12:11
PROVIDERS: ATTEND Physician Assistant Medical
PROC: 0W9G30Z Drainage of Peritoneal Cavity with Drainage Device, Percutaneous Approach (ICD-10-PCS; principal; 2022-09-25)
DX: R18.8 Other ascites (principal)
CPT/HCPCS: 49083; 80048; 85025; 85610; P9047

== ENCOUNTER 2022-10-02 12:11 | Day surgery (SDC) | payer MEDICARE ==
[2022-10-01 11:23] VITALS: BMI 25.1
[2022-10-02] MEDS ORDERED: Lidocaine 1% PF 5 ML VIAL ONE (12:22)
[2022-10-02] MEDS ORDERED: Sodium Bicarbonate 2.5 MEQ/5 ML VIAL ONE (12:22)
[2022-10-02] MEDS ORDERED: Albumin 25% 200 ML ONE (12:22)
[2022-10-02 14:39] VITALS: BP 136/62; TEMP 98
== END 2022-10-02 13:55 | disposition home or self-care (01) ==
LOC: CSHULT 12:11
PROVIDERS: ATTEND Physician Assistant Medical
DX: R18.8 Other ascites (principal)
CPT/HCPCS: 49083; P9047

== ENCOUNTER → 2022-10-16 | Day surgery (SDC) | payer MEDICARE ==
[2022-10-16 13:31] VITALS: BP 106/56; TEMP 98.7
== END ==
LOC: CSHULT 12:37
PROVIDERS: ATTEND Physician Assistant Medical
PROC: 0W9G30Z Drainage of Peritoneal Cavity with Drainage Device, Percutaneous Approach (ICD-10-PCS; principal; 2022-10-16)
DX: R18.8 Other ascites (principal)
CPT/HCPCS: 49083

== ENCOUNTER → 2022-10-23 | Day surgery (SDC) | payer MEDICARE ==
[2022-10-23 13:10] LABS: ALT (SGPT) 33 U/L (8-55); AST (SGOT) 44 U/L (5-34); Albumin 3.4 g/dL (3.4-4.8); Alkaline Phosphatase 108 U/L (40-110); Anion Gap 13 mmol/L (10-20); BUN (Urea Nitrogen) 53 mg/dL (8.4-25.7); Bilirubin, Total 0.5 mg/dL (0.2-1.2); Calc. Creatinine Clearance 0 mL/min (70-130); Calcium 8.8 mg/dL (7.8-10.44); Carbon Dioxide 25 mmol/L (23-31); Chloride 103 mmol/L (98-107); Estimated GFR 33; Globulin 2.5 g/dL (2.4-3.5); Glucose 166 mg/dL (83-110); Potassium 5.3 mmol/L (3.5-5.1); Protein, Total 5.9 g/dL (5.8-8.1); Sodium 136 mmol/L (136-145)
== END ==
LOC: CSHULT 12:10
PROVIDERS: ATTEND Physician Assistant Medical
DX: R18.8 Other ascites (principal)
CPT/HCPCS: 49083; 80053; P9047

== ENCOUNTER → 2022-10-30 | Day surgery (SDC) | payer MEDICARE ==
[2022-10-30 13:55] LABS: Hemoglobin 9.2 g/dL (13.5-17.5); Mean Corpuscular HGB CONC 31.8 g/dL (32.0-36.0); Mean Corpuscular Hemoglobin 30.7 pg (27.0-33.0); Mean Corpuscular Volume 96.3 fl (81.2-95.1); Mean Platelet Volume 10.6 fl (7.4-10.4); Platelet Count 260 10x3/uL (150-450); RBC Distribution Width 15.3 % (11.5-14.5); White Blood Cell (WBC) Count 6.9 10x3/uL (3.5-10.5)
[2022-10-30 14:01] LABS: Albumin 3.4 g/dL (3.4-4.8); Anion Gap 16 mmol/L (10-20); BUN (Urea Nitrogen) 52 mg/dL (8.4-25.7); BUN/Creatinine Ratio 25.37; Calc. Creatinine Clearance 0 mL/min (70-130); Calcium 9.2 mg/dL (7.8-10.44); Carbon Dioxide 24 mmol/L (23-31); Chloride 102 mmol/L (98-107); Estimated GFR 32; Glucose 180 mg/dL (83-110); Phosphorus 4.9 mg/dL (2.3-4.7); Sodium 137 mmol/L (136-145)
[2022-10-30 14:08] LABS: INR-International Normal Ratio 1.2; Prothrombin Time 12.4 sec (9.5-12.1)
[2022-10-30 14:23] LABS: Bilirubin Neg (Negative); Blood, Urine 10 (Negative); Clarity Clear (Clear); Glucose, Urine (Dipstick) >=1000 mg/dL (Negative); Ketone, Urine Negative (Negative); Leukocyte Negative (Negative); Nitrite Negative (Negative); Protein, Urine (Dipstick) 15 mg/dl (Neg-Trace); Urobilinogen Normal mg/dL (Less than 2)
[2022-10-30 14:37] LABS: Creatinine, Urine 36.59 mg/dL (63-166)
[2022-10-30 14:44] LABS: RBC/HPF None Seen HPF (0-3)
[2022-10-30 14:45] LABS: Bacteria/HPF None Seen HPF (None Seen); Squamous Epithelial None Seen HPF (0-3); WBC/HPF 0-3 HPF (0-3)
== END ==
LOC: CSHULT 12:16
PROVIDERS: ATTEND Physician Assistant Medical
DX: R18.8 Other ascites (principal)
CPT/HCPCS: 49083; 80069; 81001; 82043; 85027; 85610; P9047

== ENCOUNTER 2022-11-06 12:10 | Day surgery (SDC) | payer MEDICARE ==
[2022-11-06] MEDS ORDERED: Albumin 25% 200 ML ONE (12:45)
[2022-11-06] MEDS ORDERED: Sodium Bicarbonate 2.5 MEQ/5 ML VIAL ONE (12:45)
[2022-11-06] MEDS ORDERED: Lidocaine 1% PF 5 ML VIAL ONE (12:45)
[2022-11-06 13:11] VITALS: BP 106/54; TEMP 98.7
== END 2022-11-06 14:10 | disposition home or self-care (01) ==
LOC: CSHULT 12:10
PROVIDERS: ATTEND Physician Assistant Medical
DX: R18.8 Other ascites (principal)
CPT/HCPCS: 49083; P9047

== ENCOUNTER 2022-11-13 12:12 | Day surgery (SDC) | payer MEDICARE ==
[2022-11-13] MEDS ORDERED: Albumin 25% 100 ML ONE ×2 (12:32→12:56)
[2022-11-13] MEDS ORDERED: Lidocaine 1% PF 5 ML VIAL ONE (12:32)
[2022-11-13] MEDS ORDERED: Sodium Bicarbonate 2.5 MEQ/5 ML VIAL ONE (12:33)
[2022-11-13 13:04] VITALS: BP 113/55; TEMP 97.9
[2022-11-13 13:23] LABS: ALT (SGPT) 26 U/L (8-55); AST (SGOT) 33 U/L (5-34); Albumin 3.2 g/dL (3.4-4.8); Alkaline Phosphatase 105 U/L (40-110); Anion Gap 13 mmol/L (10-20); BUN (Urea Nitrogen) 52 mg/dL (8.4-25.7); Bilirubin, Total 0.5 mg/dL (0.2-1.2); Calc. Creatinine Clearance 34 mL/min (70-130); Calcium 8.7 mg/dL (7.8-10.44); Carbon Dioxide 26 mmol/L (23-31); Chloride 104 mmol/L (98-107); Estimated GFR 35; Globulin 2.4 g/dL (2.4-3.5); Glucose 169 mg/dL (83-110); Potassium 5.6 mmol/L (3.5-5.1); Protein, Total 5.6 g/dL (5.8-8.1); Sodium 137 mmol/L (136-145)
== END 2022-11-13 14:00 | disposition home or self-care (01) ==
LOC: CSHULT 12:12
PROVIDERS: ATTEND Physician Assistant Medical
PROC: 0W9G30Z Drainage of Peritoneal Cavity with Drainage Device, Percutaneous Approach (ICD-10-PCS; principal; 2022-11-13)
DX: R18.8 Other ascites (principal)
CPT/HCPCS: 49083; 80053; P9047

== ENCOUNTER → 2022-11-20 | Day surgery (SDC) | payer MEDICARE ==
[~2022-11-20] MED LIST changes: -Albumin 25% 100 ML ONE; +Albumin 25% 200 ML ONE
== END ==
LOC: CSHULT 12:16
PROVIDERS: ATTEND Physician Assistant Medical
DX: R18.8 Other ascites (principal); N18.9 Chronic kidney disease, unspecified; K74.60 Unspecified cirrhosis of liver
CPT/HCPCS: 49083; P9047

== ENCOUNTER → 2022-11-27 | Day surgery (SDC) | payer MEDICARE ==
[2022-11-27 14:37] VITALS: BP 106/55; TEMP 99.6; BMI 25.1
== END | disposition home or self-care (01) ==
LOC: CSHULT 12:18
PROVIDERS: ATTEND Physician Assistant Medical
DX: R18.8 Other ascites (principal)
CPT/HCPCS: 49083; P9047